=== PATIENT | male | born 1960 | race Two or more races ===

== ENCOUNTER 2022-03-26 11:15 | Emergency (ER) | payer MEDICAID, OTHER ==
[~2022-03-26] VITALS: Ht 165.1 cm; Wt 109.4 kg
[2022-03-26 13:00] VITALS: BP 164/96
[2022-03-26] MEDS ORDERED: IBUP800T26 PO (13:03)
== END 2022-03-26 14:58 | disposition home or self-care (01) ==
LOC: ER 11:15 → EDBD 11:15 → ER 14:58
DX: S46.001A Unspecified injury of muscle(s) and tendon(s) of the rotator cuff of right shoulder, initial encounter (principal); W11.XXXA Fall on and from ladder, initial encounter; Y93.89 Activity, other specified; Y92.89 Other specified places as the place of occurrence of the external cause; Y99.8 Other external cause status
CPT/HCPCS: 73030